=== PATIENT | female | born 1975 | race Caucasian/White ===

== ENCOUNTER 2023-05-07 12:38 | Emergency (ER) | payer OTHER ==
[~2023-05-07] VITALS: Ht 154.9 cm; Wt 65.8 kg
--- NOTE | 2023-05-07 12:40 | NUR ---
Pt BIB [facility] from dental office. Per report she received lidocaine injection, and right after c/o chest pain. On arrival, pt is awake and a/o x3, and c/o PETTIT, neck , and chest wall pain. DR Cardenas at the bedside for MSE.
[2023-05-07] MEDS ORDERED: ONDANSETRON 4 MG/2 ML VIAL IV ONE (12:45)
[2023-05-07] MEDS ORDERED: IV NORMAL SALINE 1000 ML BAG IV ONE (12:45)
[2023-05-07] MEDS ORDERED: ONDANSETRON 4 MG/2 ML VIAL ONE (13:03)
[2023-05-07 13:13] LABS: HEMATOCRIT 40.3 % (31.2-41.9); MEAN CORPUSCULAR HEMOGLOBIN 27.9 uug (24.7-32.8); MEAN CORPUSCULAR VOLUME 82.7 fL (75.5-95.3); PLATELET COUNT (AUTO) 246 K/uL (179-408)
[2023-05-07 13:17] LABS: CARBON DIOXIDE 26 mmol/L (21-32); CHLORIDE 103 mmol/L (98-107); CREATININE 0.8 mg/dL (0.6-1.3); POTASSIUM 3.7 mmol/L (3.5-5.1); UREA NITROGEN, BLOOD 15 mg/dL (7-18)
[2023-05-07 13:26] LABS: ALANINE AMINOTRANSFERASE 30 U/L (14-59); ALKALINE PHOSPHATASE 59 U/L (50-136); ASPARTATE AMINOTRANSFERASE 20 U/L (15-37); BILIRUBIN,DIRECT 0.2 mg/dL (0.0-0.2); BILIRUBIN,TOTAL 1.2 mg/dL (0.2-1.0); TOTAL PROTEIN, SERUM 7.9 g/dL (6.4-8.2)
--- NOTE | 2023-05-07 13:43 | NUR ---
Pt walked to the bathroom w/ steady gait.
--- NOTE | 2023-05-07 14:22 | NUR ---
Patient is resting comfortably in bed with eyes closed, NAD noted.
[2023-05-07] MEDS ORDERED: LORAZEPAM 0.5 MG TABLET PO ONE (14:45)
[2023-05-07] MEDS ORDERED: ACETAMINOPHEN ES 500 MG TABLET ONE (15:08)
[2023-05-07] MEDS ORDERED: ACETAMINOPHEN ES 500 MG TABLET PO ONE (15:15)
--- NOTE | 2023-05-07 16:08 | NUR ---
IV removed. Catheter intact and site benign. Pressure and 4x4 gauze applied to site. No bleeding noted.
[2023-05-07] MEDS ORDERED: ACET325T53 PO (16:09)
[2023-05-07] MEDS ORDERED: NAPR-1009 PO (16:09)
--- NOTE | 2023-05-07 16:26 | NUR ---
Patient discharged to home in stable condition. Written and verbal after care instructions given. Patient verbalizes understanding of instructions. Stressed follow up or return to ER for worsening s/s. Pt left ER w/ steady gait accompained by family.
[2023-05-07 16:27] VITALS: BP 101/60; O2SAT 99
== END 2023-05-07 16:28 | disposition home or self-care (01) ==
LOC: ER 12:38
DX: R42 Dizziness and giddiness (principal); R51.9 Headache, unspecified; M54.2 Cervicalgia; R07.89 Other chest pain
CPT/HCPCS: 99285; 96374; 71045; 96361; 80076; 80048; 82962; 85025; 84484 ×2; 36415; 93005; J2405; J7040; A4663; A9150